=== PATIENT | female | born 1985 | race Caucasian/White ===

== ENCOUNTER 2018-04-27 21:35 | Emergency (ER) | payer OTHER ==
[2018-04-27 21:42] VITALS: RESP 16; TEMP 98.4
--- NOTE | 2018-04-27 22:15 | ED ---
Psych HPI - General Chief Complaint: Psychiatric Symptoms Stated Complaint: petition Time Seen by Provider: 04/27/18 22:14 Source: patient Mode of arrival: ambulatory - History of Present Illness Initial Comments: Gabi is a 32-year-old female with a past medical history of depression and anxiety who presents to the emergency department today for psychiatric evaluation. Per the patient today she lost her job, she states that she was very upset when she found out that she was being fired. She states that she fell she was too upset to drive. She states that she sat in her car for 3 hours smoking cigarettes and talking to her friends for emotional support before leaving her workplace. She states that she returned home and took her children to [facility] and upon returning back to her house the police arrived and stated that she needs to be taken to the hospital for psychiatric evaluation apparently they had been noted by from coworkers stating that there had been concerns about her mental health. - Related Data Home Medications Medication Instructions Recorded Confirmed Dextroamphetamine/Amphetamine 20 mg PO DAILY 04/27/18 04/27/18 [Adderall] FLUoxetine HCL [PROzac] 20 mg PO DAILY 04/27/18 04/27/18 Medroxyprogesterone Acetate 150 mg IM ONCE 04/27/18 04/27/18 [Depo-Provera] Allergies Allergy/AdvReac Type Severity Reaction Status Date / Time No Known Allergies Allergy Verified 04/27/18 22:39 Review of Systems ROS Statement: Those systems with pertinent positive or pertinent negative responses have been documented in the HPI. ROS Other: All systems not noted in ROS Statement are negative. Past Medical History Past Medical History: No Reported History History of Any Multi-Drug Resistant Organisms: None Reported Past Surgical History: Appendectomy, Section Past Psychological History: ADD/ADHD, Depression Smoking Status: Current every day smoker Past Alcohol Use History: None Reported Past Drug Use History: Marijuana General Exam - General Exam Comments Initial Comments: Physical Exam GENERAL: Patient is well-developed and well-nourished. Patient is nontoxic and well- hydrated and is in no distress. HENT: Normocephalic, Atraumatic. EYES: PERRL, EOMI PULMONARY: Unlabored respirations. No audible rales rhonchi or wheezing was noted. CARDIOVASCULAR: There is a regular rate and rhythm without any murmurs gallops or rubs. ABDOMEN: Soft and nontender with normal bowel sounds. SKIN: Skin is clear with no lesions or rashes and otherwise unremarkable. : Deferred NEUROLOGIC: Patient is alert and oriented x3. Moving all extremities spontaneously MUSCULOSKELETAL: Normal extremities with adequate strength and full range of motion. No lower extremity swelling or edema. No calf tenderness. PSYCHIATRIC: Normal psychiatric evaluation. Limitations: no limitations Limitations: no limitations Course Vital Signs 04/27/18 21:38 Temperature 98.4 F Pulse Rate 104 H Respiratory 16 Rate Blood Pressure 136/88 O2 Sat by Pulse 100 Oximetry Medical Decision Making - Medical Decision Making The patient was seen and evaluated, history was obtained from the patient and review of the petition At this time I feel the patient is having an acute stress reaction to losing her job. The patient is not acutely suicidal homicidal or delusional. She is tending to her activities of daily living and caring for her children. At this time I do not feel the petition was warranted. Patient is requesting to discuss her care with the psychiatric nurse so that she can establish follow-up, patient did call [facility] last week and was told that because she is high functioning they could not get her an appointment patient would like follow-up for therapy Patient was seen and evaluated by EPS nurse who agrees the patient does not require petitioner certification. Patient is not a candidate for inpatient therapy. She provided the patient with outpatient resources. Patient was discharged home - Lab Data Lab Results 04/27/18 04/27/18 Range/Units 22:27 22:27 Urine Color Yellow Urine Appearance Clear (Clear) Urine pH 6.0 (5.0-8.0) Ur Specific [place] 1.029 (1.001-1.035) Urine Protein Trace H (Negative) Urine Glucose (UA) Negative (Negative) Urine Ketones Trace H (Negative) Urine Blood Moderate H (Negative) Urine Nitrite Negative (Negative) Urine Bilirubin Negative (Negative) Urine Urobilinogen 3.0 (<2.0) mg/dL Ur Leukocyte Esterase Negative (Negative) Urine RBC 7 H (0-5) /hpf Urine WBC 1 (0-5) /hpf Ur Squamous Epith Cells 4 (0-4) /hpf Urine Mucus Many H (None) /hpf Urine HCG, Qual Not Detected (Not Detectd) Urine Opiates Screen Not Detected (NotDetected) Ur Oxycodone Screen Not Detected (NotDetected) Urine Methadone Screen Not Detected (NotDetected) Ur Propoxyphene Screen Not Detected (NotDetected) Ur Barbiturates Screen Not Detected (NotDetected) U Tricyclic Antidepress Not Detected (NotDetected) Ur Phencyclidine Scrn Not Detected (NotDetected) Ur Amphetamines Screen Detected H (NotDetected) U Methamphetamines Scrn Not Detected (NotDetected) U Benzodiazepines Scrn Detected H (NotDetected) Urine Cocaine Screen Not Detected (NotDetected) U Marijuana (THC) Screen Detected H (NotDetected) Disposition Clinical Impression: Depression Disposition: HOME SELF-CARE Condition: Good Instructions: Stress (ED), Depression (DC) Is patient prescribed a controlled substance at d/c from ED?: No Referrals: Mary Ann Francis MD [Primary Care Provider] - 1-2 days
[2018-04-27 22:41] LABS: Appearance,Urine Clear (Clear); Bilirubin,Urine Negative (Negative); Blood,Urine Moderate (Negative); Color,Urine Yellow; Glucose,Urine (UA) Negative (Negative); Ketones,Urine Trace (Negative); Leukocyte Esterase,Urine Negative (Negative); Mucus,Urine Many /hpf; Nitrite,Urine Negative (Negative); Protein,Urine Trace (Negative); RBC,Urine 7 /hpf (0-5); Specific Gravity,Urine 1.029 (1.001-1.035); Squamous Epithelial Cell,Urine 4 /hpf (0-4); WBC,Urine 1 /hpf (0-5)
[2018-04-27 22:55] LABS: Amphetamine Screen,Urine Detected (NotDetected); Barbiturate Screen,Urine Not Detected (NotDetected); Benzodiazepines Screen,Urine Detected (NotDetected); Cocaine Screen,Urine Not Detected (NotDetected); Methadone Screen, Urine Not Detected (NotDetected); Opiate Screen,Urine Not Detected (NotDetected); Oxycodone Screen, Urine Not Detected (NotDetected); Phencyclidine Screen,Urine Not Detected (NotDetected); Tricyclic Antidepressant,Urine Not Detected (NotDetected); Urn Cannabinoid Scrn Detected (NotDetected)
[2018-04-28 01:32] VITALS: BP 117/70; PULSE 76
== END 2018-04-28 01:14 | disposition home or self-care (01) ==
LOC: MERGE 21:35 → EC 21:35
DX: F32.9 Major depressive disorder, single episode, unspecified (principal); F43.0 Acute stress reaction; F90.9 Attention-deficit hyperactivity disorder, unspecified type; F17.210 Nicotine dependence, cigarettes, uncomplicated; Z79.3 Long term (current) use of hormonal contraceptives; Z79.899 Other long term (current) drug therapy
CPT/HCPCS: 80306; 81001; 81025; 82075; 99284